=== PATIENT | male | born 1975 | race Caucasian/White ===

== ENCOUNTER 2020-09-22 17:05 | Emergency (ER) | payer SELFPAY ==
[~2020-09-22] VITALS: Ht 180.3 cm; Wt 81.7 kg
== END 2020-09-22 19:20 | disposition home or self-care (01) ==
LOC: ER 17:05
DX: M79.89 Other specified soft tissue disorders (principal); F17.210 Nicotine dependence, cigarettes, uncomplicated
CPT/HCPCS: 93971; 99283-25

== ENCOUNTER 2020-10-07 01:12 | Emergency (ER) | payer SELFPAY ==
[~2020-10-07] VITALS: Ht 180.3 cm; Wt 81.7 kg
== END 2020-10-07 05:30 | disposition left against medical advice (07) ==
LOC: ER 01:12
DX: Z53.21 Procedure and treatment not carried out due to patient leaving prior to being seen by health care provider (principal)

== ENCOUNTER 2024-08-11 11:49 | Emergency (ER) | payer OTHER ==
[~2024-08-11] VITALS: Ht 180.3 cm; Wt 81.7 kg
[2024-08-11 12:19] VITALS: BP 129/80
== END 2024-08-11 13:53 | disposition home or self-care (01) ==
LOC: ER 11:49
DX: Z76.0 Encounter for issue of repeat prescription (principal); F17.200 Nicotine dependence, unspecified, uncomplicated
CPT/HCPCS: 99281; A9270